=== PATIENT | female | born 1990 | race American Indian/Alaskan Native ===

== ENCOUNTER 2016-07-10 03:38 | Inpatient (IN) | payer OTHER ==
[2016-07-10] MEDS ORDERED: MINERAL OIL PO PRN (04:00)
[2016-07-10] MEDS ORDERED: ePHEDrine SULFATE IV PRN (04:00)
[2016-07-10] MEDS ORDERED: LACTATED RINGERS 1,000 ML IV SCH (04:00)
[2016-07-10] MEDS ORDERED: POLYCILLIN/NS 2 GM/100 ML 2 GM/100 ML BAG IV ONE (04:00)
[2016-07-10] MEDS ORDERED: ZOFRAN IV PRN ×2 (04:00→08:06)
[2016-07-10] MEDS ORDERED: STADOL ONE (05:00)
[2016-07-10] MEDS ORDERED: STADOL IV ONE (05:04)
[2016-07-10 05:10] LABS: Hematocrit 30.6 % (30.3-42.9); Hemoglobin 9.9 gm/dl (10.1-14.3); Mean Corpuscular HGB Conc 32 % (30-34); Mean Corpuscular Hemoglobin 27 pg (28-32); Mean Corpuscular Volume 84 fl (79-97); Platelet Count 185 K/mm3 (140-440); Red Blood Count 3.65 M/mm3 (3.65-5.03); Red Cell Distribution Width 14.6 % (13.2-15.2); White Blood Count 10.8 K/mm3 (4.5-11.0)
[2016-07-10] MEDS ORDERED: CLEOCIN 900 MG/50 mL 900 MG/50 ML BAG IV SCH (06:00)
[2016-07-10] MEDS ORDERED: PITOCin/NS 20 UNIT/1000ML DRIP 20,000 MILLIUNITS/1,000 ML BAG IV ONE (06:09)
[2016-07-10] MEDS ORDERED: PITOCin/NS 20 UNIT/1000ML DRIP 20,000 MILLIUNITS/1,000 ML BAG IV SCH (06:45)
--- NOTE | 2016-07-10 07:10 | History and Physical Report ---
History of Present Illness Date of examination: 07/10/16 Date of admission: 07/10/16 04:33 Chief complaint: I'm in labor History of present illness: Patient is a 25 year old who presents at 39.3 weeks in active labor. Patient has had an uncomplicated course. She is GBS negative. Past History Past Medical History: no pertinent history Past Surgical History: no surgical history Family/Genetic History: none Social history: - Obstetrical History Expected Date of Delivery: 07/14/16 Actual Gestation: 39 Week(s) 3 Day(s) : 3 Number of Living Children: 1 Medications and Allergies Allergies Allergy/AdvReac Type Severity Reaction Status Date / Time NSAIDS (Non-Steroidal Allergy Unknown Verified 07/10/16 04:08 Anti-Inflamma Penicillins Allergy Unknown Verified 07/10/16 04:08 Sulfa (Sulfonamide Allergy Unknown Verified 07/10/16 04:07 Antibiotics) Active Meds: Active Medications Lactated Ringer's (Lactated Ringers) 1,000 mls @ 125 mls/hr IV DIRECT ALEKSANDAR Last Admin: 07/10/16 05:10 Dose: 125 mls/hr Clindamycin HCl (Cleocin 900 Mg/50 Ml) 900 mg in 50 mls @ 100 mls/hr IV Q8HR ALEKSANDAR PRN Reason: Protocol Last Admin: 07/10/16 06:10 Dose: 100 mls/hr Mineral Oil (Mineral Oil) 30 ml PO QHS PRN PRN Reason: Constipation Ondansetron HCl (Zofran) 4 mg IV Q8H PRN PRN Reason: Nausea And Vomiting Review of Systems All systems: negative Genitourinary: pelvic pain, contractions - Vital Signs Vital signs: Vital Signs Pulse BP Pulse Ox 64 137/77 75 L 07/10/16 03:46 07/10/16 03:46 07/10/16 03:46 Temp Pulse Resp BP Pulse Ox 98.5 F 90 20 134/72 99 07/10/16 03:48 07/10/16 07:05 07/10/16 05:09 07/10/16 07:05 07/10/16 04:18 - Physical Exam Breasts: Cardiovascular: Regular rate, Normal S1, Normal S2 Lungs: Positive: Clear to auscultation, Normal air movement Abdomen: Positive: normal appearance, soft, normal bowel sounds. Negative: distention, tenderness Genitourinary (Female): Positive: normal external genitalia, normal perenium Vulva: both: normal Vagina: Positive: normal moisture. Negative: discharge Cervix: Negative: lesion, discharge Uterus: Positive: normal size, normal contour Adnexa: both: normal Anus/Rectum: Positive: normal perianal skin, heme negative. Negative: rectal mass, hemorrhoids Extremities: Positive: normal Deep Tendon Reflex Grade: Normal +2 - Obstetrical Cervical Dilatation: 5 Cervical Effacement Percentage: 100 station: -2 Uterine Contraction Frequency (min): 3 Uterine Contraction Pattern: Regular Uterine Contraction Intensity: Moderate Results Result Diagrams: 07/10/16 04:50 Abnormal lab results 07/10/16 Range/Units 04:50 Hgb 9.9 L (10.1-14.3) gm/dl MCH 27 L (28-32) pg All other labs normal. Assessment and Plan IUP at 39.3 weeks who presents in active labor. Admit to L&D. Patient does not want epidural. Anticipate .
--- NOTE | 2016-07-10 07:13 | Procedure Note ---
OB Delivery Note - Delivery Date of Delivery: 07/10/16 Surgeon: MYNOR BRAXTON Estimated blood loss: 200cc - Vaginal Delivery presentation: vertex Delivery position: OA Intrapartum events: meconium Delivery induction: none Delivery monitor: external FHT, external uterine Route of delivery: Delivery placenta: spontaneous Delivery cord: nuchal cord, 3 umbilical vessels Episiotomy: none Delivery laceration: none Anesthesia: none Delivery comments: Viable female delivered over intact perineum with tight nuchal cord cut on perineum. Weight 9 pounds 1 ounce (4114 grams). Apgars 7,9. Placenta delivered spontaneously and intact with 3vc. No lacerations. Patient tolerated procedure well. - Infant A at 1 minute: 8 at 5 minutes: 9 Infant Gender: Female
[2016-07-10] MEDS ORDERED: POLYCILLIN/NS 1 GM/50 ML 1 GM/50 ML BAG IV SCH (08:00)
[2016-07-10] MEDS ORDERED: LANSINOH TP PRN (08:06)
[2016-07-10] MEDS ORDERED: TUCKS PAD TP PRN (08:06)
[2016-07-10] MEDS ORDERED: SODIUM CHLORIDE FLUSH SYRINGE 10 ML IV NR (08:06)
[2016-07-10] MEDS ORDERED: BENADRYL PO PRN (08:06)
[2016-07-10] MEDS ORDERED: TYLENOL PO PRN (08:06)
[2016-07-10] MEDS ORDERED: PHENERGAN PO PRN (08:06)
[2016-07-10] MEDS ORDERED: PHENERGAN PR PRN (08:06)
[2016-07-10] MEDS ORDERED: MILK OF MAGNESIA PO PRN (08:06)
[2016-07-10] MEDS ORDERED: DERMOPLAST TP PRN (08:06)
[2016-07-10] MEDS ORDERED: DULCOLAX PR PRN (08:06)
[2016-07-10] MEDS: NORCO 5/325 PO PRN ×2 (08:16→20:30)
[2016-07-10] MEDS: FEOSOL PO SCH ×2 (10:45→22:00)
[2016-07-10] MEDS: PRENATAL VITAMIN PO SCH (10:45)
[2016-07-10] MEDS: COLACE PO SCH ×2 (10:45→22:00)
[2016-07-10 21:27] LABS: Hematocrit 26.9 % (30.3-42.9); Hemoglobin 8.7 gm/dl (10.1-14.3)
[2016-07-11] MEDS: NORCO 5/325 PO PRN ×2 (03:35→10:50)
[2016-07-11] MEDS ORDERED: BOOSTRIX IM ONE (06:00)
--- NOTE | 2016-07-11 10:43 | Progress Note ---
Assessment and Plan PPD 1 s/p . Doing well. Patient ready for discharge on today Subjective - Subjective Date of service: 07/11/16 Interval history: Patient is a 25 year old who presents at 39.3 weeks in active labor. Patient has had an uncomplicated course. She is GBS negative. Patient reports: appetite normal, voiding normally, pain well controlled, ambulating normally [place]: doing well Objective - Vital Signs Latest vital signs: Vital Signs Temp Pulse Pulse Resp BP 07/11/16 08:35 97.7 F 90 20 114/60 07/11/16 03:35 18 07/11/16 00:00 97.6 F 80 18 106/60 07/10/16 20:30 18 07/10/16 20:00 98.3 F 84 18 119/66 07/10/16 16:28 97.5 F L 82 82 18 116/72 07/10/16 11:26 98.3 F 84 20 108/70 Intake and Output 07/10/16 07/11/16 07/11/16 22:59 06:59 14:59 Intake Total 480 360 360 Output Total 500 Balance -20 360 360 Intake: Oral 240 360 Intake, Free Water 240 360 Output: Urine 500 Void 500 Other: Total, Intake Amount 240 360 Total, Output Amount 500 # Voids Void 1 1 1 - Exam Cardiovascular: Present: Regular rate, Normal S1, Normal S2 Lungs: Present: Clear to auscultation, Normal air movement Abdomen: Present: normal appearance, soft Uterus: Present: normal, firm Extremities: Present: normal Incision: Present: normal, dry, intact - Labs Labs: Abnormal lab results 07/10/16 Range/Units 20:49 Hgb 8.7 L (10.1-14.3) gm/dl Hct 26.9 L (30.3-42.9) %
--- NOTE | 2016-07-11 10:46 | Discharge Summary ---
Providers - Providers Date of Admission: 07/10/16 04:33 Date of discharge: 07/11/16 Attending physician: MYNOR BRAXTON Primary care physician: MYNOR BRAXTON Hospitalization Reason for admission: active labor Delivery: Laceration: none Other procedures: none complications: none Discharge diagnosis: IUP at term delivered [place] baby: female Hospital course: unremarkable Condition at discharge: Good Disposition: DISCHARGED TO HOME OR SELFCARE Plan - Discharge Medications Prescriptions: Docusate Sodium [Colace CAP] 100 mg PO BID #40 capsule Ferrous Sulfate [Feosol 325 MG tab] 325 mg PO BID #60 tablet HYDROcodone/APAP 5-325 [[place] 5-325 mg TAB] 2 each PO Q6H PRN #40 tablet PRN Reason: Pain, Moderate (4-6) - Provider Discharge Summary Activity: routine, no sex for 6 weeks, no heavy lifting 4 weeks, no strenuous exercise Diet: routine Additional instructions: [] Smoking cessation referral if applicable(refer to patient education folder for contact #) [] Refer to [facility]'s [facility] Booklet Call your doctor immediately for: * Fever > 100.5 * Heavy vaginal bleeding ( >1 pad per hour) * Severe persistent headache * Shortness of breath * Reddened, hot, painful area to leg or breast * Drainage or odor from incision. * Keep incision clean and dry at all times and follow doctor's instructions regarding bathing/showering - Follow up plan Follow up: MYNOR BRAXTON MD [Primary Care Provider] - 08/07/16 Forms: [facility] Discharge Summary, Discharge Signature Page
[2016-07-11] MEDS: PRENATAL VITAMIN PO SCH (10:50)
[2016-07-11] MEDS: COLACE PO SCH (10:50)
[2016-07-11] MEDS: FEOSOL PO SCH (10:50)
[2016-07-11 12:43] VITALS: BP 114/72
== END 2016-07-11 13:45 | disposition home or self-care (01) | DRG 775 ==
LOC: TRG 03:38 → LD 04:33 → TRG 04:33 → LD 05:29 → OB 09:01
PROVIDERS: ADMIT Obstetrics & Gynecology; ATTEND Obstetrics & Gynecology
PROC: 10E0XZZ Delivery of Products of Conception, External Approach (ICD-10-PCS; principal; 2016-07-10)
PROC: 3E0234Z Introduction of Serum, Toxoid and Vaccine into Muscle, Percutaneous Approach (ICD-10-PCS; 2016-07-11)
DX: O77.0 Labor and delivery complicated by meconium in amniotic fluid (principal); O69.1XX0 Labor and delivery complicated by cord around neck, with compression, not applicable or unspecified; Z3A.39 39 weeks gestation of pregnancy; Z37.0 Single live birth; Z88.2 Allergy status to sulfonamides; Z88.1 Allergy status to other antibiotic agents; Z88.8 Allergy status to other drugs, medicaments and biological substances; Z23 Encounter for immunization
CPT/HCPCS: 36415; 85014; 85018; 85027; 86850; 86900; 86901; 90471; 90715; 99211; A6250; G0463; J0595; J2590; J7120